=== PATIENT | female | born 1985 | race Caucasian/White ===

== ENCOUNTER 2022-05-27 12:56 | Outpatient (CLI) | payer BC, SELFPAY | END 2022-05-27 12:57 | disposition home or self-care (01) | LOC: LKVREF 05-28 14:25 | PROVIDERS: Visit Provider Nurse Practitioner Family | DX: F41.9 Anxiety disorder, unspecified (principal); F32.9 Major depressive disorder, single episode, unspecified; R45.851 Suicidal ideations | CPT/HCPCS: 80053; 80178 ==

== ENCOUNTER 2024-04-09 09:37 | Outpatient (CLI) | payer OTHER, MEDICARE, SELFPAY ==
[2024-04-09 10:02] LABS: Ur HCG Qualitative* Negative (Negative)
--- NOTE | 2024-04-09 11:05 | W.ANESCHARGE ---
Anesthesia Charges Start Date/Time Anesthesia Start Date: 04/09/24 Anesthesia Start Time: 10:21 Stop Date/Time Anesthesia Stop Date: 04/09/24 Anesthesia Stop Time: 11:08
--- NOTE | 2024-04-09 11:10 | W.ANESCHARGE ---
Anesthesia Charges Start Date/Time Anesthesia Start Date: 04/09/24 Anesthesia Start Time: 10:21 Stop Date/Time Anesthesia Stop Date: 04/09/24 Anesthesia Stop Time: 11:08
== END 2024-04-09 09:38 | disposition home or self-care (01) ==
PROVIDERS: PCP Nurse Practitioner Family; Visit Provider Internal Medicine Gastroenterology
DX: Z12.11 Encounter for screening for malignant neoplasm of colon (principal); K63.5 Polyp of colon; Z83.719 Family history of colon polyps, unspecified
CPT/HCPCS: 00811; 45385; 81025; 88305; J2704